=== PATIENT | female | born 1995 | race Two or more races ===

== ENCOUNTER 2021-01-18 23:27 | Emergency (ER) | payer OTHER ==
[~2021-01-18] VITALS: Ht 152.4 cm; Wt 61.7 kg
[2021-01-18] MEDS ORDERED: PRENA1 CHEW TA1.4 MG (23:46)
[2021-01-19] MEDS ORDERED: ONDANSETRON HCL4 MG PO (04:12)
[2021-01-19] MEDS ORDERED: SLEEP AID25 M1 PO (04:12)
[2021-01-19] MEDS ORDERED: PEPCID20 MG PO (04:12)
== END 2021-01-19 04:16 | disposition home or self-care (01) ==
LOC: ER 23:27
DX: K52.9 Noninfective gastroenteritis and colitis, unspecified (principal); R11.2 Nausea with vomiting, unspecified

== ENCOUNTER 2021-06-13 23:32 | Inpatient (IN) | payer OTHER ==
[~2021-06-13] VITALS: Ht 157.5 cm; Wt 70.3 kg
[~2021-06-13 23:32] MED LIST: ONDANSETRON HCL4 MG PO; PEPCID20 MG PO; PRENA1 CHEW TA1.4 MG; SLEEP AID25 M1 PO
[2021-06-13] MEDS ORDERED: VALTREX1000 MG PO (23:36)
== END 2021-06-15 11:05 | disposition home or self-care (01) | DRG 807 ==
LOC: OB/GYN 23:32 → LDR 23:32 → OB/GYN 06-14 01:47
PROVIDERS: ADMIT Obstetrics & Gynecology; ATTEND Obstetrics & Gynecology
PROC: 10E0XZZ Delivery of Products of Conception, External Approach (ICD-10-PCS; principal; 2021-06-13)
PROC: 0KQM0ZZ Repair Perineum Muscle, Open Approach (ICD-10-PCS; 2021-06-13)
PROC: 4A1HXFZ Monitoring of Products of Conception, Cardiac Rhythm, External Approach (ICD-10-PCS; 2021-06-13)
DX: O70.1 Second degree perineal laceration during delivery (principal); Z37.0 Single live birth; Z3A.39 39 weeks gestation of pregnancy